=== PATIENT | male | born 1990 | race Caucasian/White ===

== ENCOUNTER 2024-03-05 09:49 | Emergency (ER) | payer SELFPAY ==
[~2024-03-05] VITALS: Ht 177.8 cm; Wt 93.9 kg
[~2024-03-05 09:49] MED LIST: ACET-9234 PO
[2024-03-05 10:00] VITALS: BP 119/78; PULSE 85; RESP 18; TEMP 97.9; O2SAT 97
[2024-03-05] MEDS: NACL 0.9% 1,000 ML IV ONE (10:26)
[2024-03-05] MEDS: ONDANSETRON 4 MG/2 ML VIAL IVP ONE (10:29)
[2024-03-05] MEDS: KETOROLAC 30 MG/ML VIAL IVP ONE (10:31)
[2024-03-05] MEDS ORDERED: ONDA8TAB87 PO (10:34)
[2024-03-05] MEDS ORDERED: IBUP-2213 PO (10:34)
[2024-03-05 11:08] VITALS: BP 110/68; PULSE 68; RESP 18; TEMP 36.61404; O2SAT 98
[2024-03-06] MEDS ORDERED: SUCR1TAB56 PO (04:42)
[2024-03-06] MEDS ORDERED: METO-485 PO (04:42)
[2024-03-06] MEDS ORDERED: FAMO-90 PO (04:42)
== END 2024-03-05 11:06 | disposition home or self-care (01) ==
LOC: MED 09:49
DX: R10.13 Epigastric pain (principal); R11.2 Nausea with vomiting, unspecified; Z79.899 Other long term (current) drug therapy
CPT/HCPCS: 96361; 96374; 96375; 99284; J1885; J2405; J7030

== ENCOUNTER 2024-03-06 00:21 | Emergency (ER) | payer SELFPAY ==
[~2024-03-06] VITALS: Ht 177.8 cm; Wt 93.9 kg
[~2024-03-06 00:21] MED LIST changes: +IBUP-2213 PO; +ONDA8TAB87 PO
[2024-03-06 00:26] VITALS: BP 155/99; PULSE 88; RESP 16; TEMP 96.9; O2SAT 98
[2024-03-06] MEDS: ONDANSETRON 4 MG/2 ML VIAL IVP ONE (01:23)
[2024-03-06] MEDS: MORPHINE SULFATE 4 MG/ML SYR IVP ONE (01:25)
[2024-03-06] MEDS: NACL 0.9% 1,000 ML IV ONE (01:28)
[2024-03-06 01:36] LABS: ANION GAP 13.7 (8-16); BASOPHILS % (AUTO) 0.3 % (0.0-2.0); CALCIUM 9.3 mg/dL (8.5-10.1); CARBON DIOXIDE 27.9 mmol/L (21-32); EOSINOPHILS % (AUTO) 0.3 % (0.0-4.0); HEMOGLOBIN 15.6 g/dL (12.0-18.0); LYMPHOCYTES # (AUTO) 1.4 K/uL (2.0-11.5); LYMPHOCYTES % (AUTO) 13.6 % (20.5-51.1); MEAN CORPUSCULAR HEMOGLOBIN 30 pg (27-31); MEAN CORPUSCULAR HGB CONC 35 g/dL (33-37); MEAN CORPUSCULAR VOLUME 87.5 fL (80-94); MONOCYTES # (AUTO) 0.8 K/uL (0.8-1.0); MONOCYTES % (AUTO) 8.3 % (1.7-9.3); NEUTROPHILS # (AUTO) 7.8 K/uL (1.8-7.7); NEUTROPHILS % (AUTO) 77.5 % (42.2-75.2); PLATELET COUNT (AUTO) 217 K/uL (140-450); POTASSIUM 3.6 mmol/L (3.5-5.1); RED BLOOD CELL COUNT(AUTO) 5.14 MIL/uL (4.20-6.10); RED CELL DISTRIBUTION WIDTH 13.3 % (11.6-13.7); WHITE BLOOD COUNT (AUTO) 10.1 K/uL (4.8-10.8)
[2024-03-06 01:40] LABS: ALBUMIN 4.3 g/dL (3.4-5.0); BILIRUBIN,DIRECT 0.5 mg/dL (0.0-0.3); TOTAL BILIRUBIN 1.4 mg/dL (0.0-1.0); TOTAL PROTEIN, SERUM 8.1 g/dL (6.4-8.2)
[2024-03-06 03:03] VITALS: BP 117/69; PULSE 73; RESP 15
[2024-03-06] MEDS: METOCLOPRAMIDE 10 MG/2 ML INJ VIAL IVP ONE (04:03)
[2024-03-06 04:07] VITALS: O2SAT 96
[2024-03-06] MEDS ORDERED: ONDANSETRON 4 MG/2 ML VIAL IVP ONE (04:40)
[2024-03-06] MEDS ORDERED: SUCR1TAB56 PO (04:42)
[2024-03-06] MEDS ORDERED: METO-485 PO (04:42)
[2024-03-06] MEDS ORDERED: FAMO-90 PO (04:42)
== END 2024-03-06 05:27 | disposition home or self-care (01) ==
LOC: MED 00:21
DX: K29.70 Gastritis, unspecified, without bleeding (principal); Z79.899 Other long term (current) drug therapy
CPT/HCPCS: 36415; 74176; 80048; 80076; 83690; 85025; 96361; 96374; 96375; 99285; J2270; J2405; J2765; J7030

== ENCOUNTER 2024-04-12 18:05 | Emergency (ER) | payer SELFPAY ==
[~2024-04-12] VITALS: Ht 177.8 cm; Wt 97.5 kg
[~2024-04-12 18:05] MED LIST changes: +FAMO-90 PO; +METO-485 PO; +SUCR1TAB56 PO
[2024-04-12 18:29] VITALS: BP 131/87; PULSE 80; RESP 16; TEMP 98.9; O2SAT 97
[2024-04-12 19:20] LABS: BASOPHILS % (AUTO) 0.3 % (0.0-2.0); EOSINOPHILS # (AUTO) 0.1 K/uL (0-0.4); EOSINOPHILS % (AUTO) 1.6 % (0.0-4.0); HEMATOCRIT 42.5 % (36-52); HEMOGLOBIN 14.3 g/dL (12.0-18.0); LYMPHOCYTES % (AUTO) 29.1 % (20.5-51.1); MEAN CORPUSCULAR HEMOGLOBIN 29 pg (27-31); MEAN CORPUSCULAR HGB CONC 34 g/dL (33-37); MEAN CORPUSCULAR VOLUME 87.3 fL (80-94); MONOCYTES # (AUTO) 0.7 K/uL (0.8-1.0); MONOCYTES % (AUTO) 9.8 % (1.7-9.3); NEUTROPHILS # (AUTO) 4.1 K/uL (1.8-7.7); NEUTROPHILS % (AUTO) 59.2 % (42.2-75.2); PLATELET COUNT (AUTO) 215 K/uL (140-450); RED BLOOD CELL COUNT(AUTO) 4.87 MIL/uL (4.20-6.10); RED CELL DISTRIBUTION WIDTH 13.4 % (11.6-13.7); WHITE BLOOD COUNT (AUTO) 6.9 K/uL (4.8-10.8)
[2024-04-12 19:22] LABS: APPEARANCE,URINE CLEAR (CLEAR); BILIRUBIN,URINE NEGATIVE (NEGATIVE); BLOOD, URINE NEGATIVE (NEGATIVE); COLOR,URINE YELLOW (YELLOW); LEUKOCYTE ESTERASE ,URINE NEGATIVE (NEGATIVE); NITRITE, URINE NEGATIVE (NEGATIVE); PROTEIN,URINE NEGATIVE (NEGATIVE); UGLUCOSE NEGATIVE (NEGATIVE)
[2024-04-12 19:30] VITALS: BP 110/66; PULSE 74; RESP 20; O2SAT 98
[2024-04-12 19:33] LABS: ALBUMIN 4.1 g/dL (3.4-5.0); ANION GAP 10.6 (8-16); CALCIUM 9.1 mg/dL (8.5-10.1); CARBON DIOXIDE 31.2 mmol/L (21-32); CREATININE 0.8 mg/dL (0.6-1.3); POTASSIUM 3.8 mmol/L (3.5-5.1); TOTAL BILIRUBIN 0.8 mg/dL (0.0-1.0); TOTAL PROTEIN, SERUM 7.5 g/dL (6.4-8.2)
[2024-04-12] MEDS: KETOROLAC 60 MG/2 ML VIAL IM ONE (19:37)
[2024-04-12] MEDS: ACETAMINOPHEN EXTRA STRENGTH 500 MG TAB PO ONE (20:20)
[2024-04-12] MEDS ORDERED: CLIN300C2 PO (20:25)
[2024-04-12] MEDS ORDERED: FAMO-90 PO (20:27)
[2024-04-12] MEDS ORDERED: IBUP-2213 PO (20:27)
== END 2024-04-12 20:40 | disposition home or self-care (01) ==
LOC: MED 18:05
DX: R10.12 Left upper quadrant pain (principal); R10.13 Epigastric pain; R11.2 Nausea with vomiting, unspecified; M54.9 Dorsalgia, unspecified; Z79.899 Other long term (current) drug therapy
CPT/HCPCS: 36415; 80053; 81003; 83690; 85025; 96372; 99283; J1885

== ENCOUNTER 2024-04-15 05:28 | Emergency (ER) | payer SELFPAY ==
[~2024-04-15] VITALS: Ht 177.8 cm; Wt 93.9 kg
[2024-04-15 05:45] VITALS: BP 114/75; PULSE 74; RESP 18; TEMP 98; O2SAT 98
[2024-04-15] MEDS: NACL 0.9% 1,000 ML IV ONE (06:51)
[2024-04-15 06:54] VITALS: O2SAT 98
[2024-04-15] MEDS: ONDANSETRON 4 MG/2 ML VIAL IVP ONE (06:56)
[2024-04-15] MEDS: FAMOTIDINE 20 MG/2 ML VIAL IVP ONE (06:56)
[2024-04-15] MEDS: MORPHINE SULFATE 4 MG/ML SYR IVP ONE (06:58)
[2024-04-15 07:11] LABS: BASOPHILS % (AUTO) 0.4 % (0.0-2.0); EOSINOPHILS % (AUTO) 0.4 % (0.0-4.0); HEMOGLOBIN 14.9 g/dL (12.0-18.0); LYMPHOCYTES # (AUTO) 1.6 K/uL (2.0-11.5); LYMPHOCYTES % (AUTO) 20.7 % (20.5-51.1); MEAN CORPUSCULAR HEMOGLOBIN 30 pg (27-31); MEAN CORPUSCULAR HGB CONC 34 g/dL (33-37); MEAN CORPUSCULAR VOLUME 87.2 fL (80-94); MONOCYTES # (AUTO) 0.6 K/uL (0.8-1.0); MONOCYTES % (AUTO) 7.9 % (1.7-9.3); NEUTROPHILS # (AUTO) 5.3 K/uL (1.8-7.7); NEUTROPHILS % (AUTO) 70.6 % (42.2-75.2); PLATELET COUNT (AUTO) 225 K/uL (140-450); RED BLOOD CELL COUNT(AUTO) 5.05 MIL/uL (4.20-6.10); RED CELL DISTRIBUTION WIDTH 13.5 % (11.6-13.7); WHITE BLOOD COUNT (AUTO) 7.5 K/uL (4.8-10.8)
[2024-04-15 07:13] VITALS: BP 113/68; PULSE 63; RESP 16; TEMP 98.1; O2SAT 99
[2024-04-15 07:20] LABS: ANION GAP 9.1 (8-16); CALCIUM 9.4 mg/dL (8.5-10.1); CARBON DIOXIDE 31.7 mmol/L (21-32); CREATININE 0.7 mg/dL (0.6-1.3); POTASSIUM 3.8 mmol/L (3.5-5.1)
[2024-04-15 07:24] LABS: ALBUMIN 4.2 g/dL (3.4-5.0); BILIRUBIN,DIRECT 0.3 mg/dL (0.0-0.3); TOTAL BILIRUBIN 1.3 mg/dL (0.0-1.0); TOTAL PROTEIN, SERUM 7.9 g/dL (6.4-8.2)
[2024-04-15 07:25] LABS: AMPHETAMINE, URINE NEGATIVE ng/ml (NEG <=1000); BARBITURATE, URINE NEGATIVE ng/ml (NEG <=200); BENZODIAZEPINE, URINE NEGATIVE ng/mL (NEG <=200); CANNABINOID, URINE POSITIVE ng/mL (NEG <=50); COCAINE, URINE NEGATIVE ng/mL (NEG <=300); OPIATE, URINE NEGATIVE ng/mL (NEG <=2000); PHENCYCLIDINE SCREEN,URINE NEGATIVE ng/mL (NEG <=25)
[2024-04-15] MEDS ORDERED: ONDA-188 SL (08:04)
[2024-04-15] MEDS ORDERED: FAMO-90 PO (08:04)
[2024-04-16] MEDS ORDERED: ATA25 PO (13:24)
== END 2024-04-15 09:00 | disposition home or self-care (01) ==
LOC: MED 05:28
DX: K29.70 Gastritis, unspecified, without bleeding (principal); R11.2 Nausea with vomiting, unspecified; E11.9 Type 2 diabetes mellitus without complications; Z79.84 Long term (current) use of oral hypoglycemic drugs; Z79.899 Other long term (current) drug therapy
CPT/HCPCS: 36415; 76705; 80048; 80076; 80305; 83690; 85025; 96361; 96374; 96375; 99285; J2270; J2405; J3490; J7030; Q0092

== ENCOUNTER 2024-04-16 12:50 | Emergency (ER) | payer SELFPAY ==
[~2024-04-16] VITALS: Ht 177.8 cm; Wt 93.9 kg
[2024-04-16 12:50] VITALS: BP 134/94; PULSE 92; RESP 18; TEMP 98.5; O2SAT 98
[~2024-04-16 12:50] MED LIST changes: +ONDA-188 SL
[2024-04-16] MEDS ORDERED: ATA25 PO (13:24)
[2024-04-16] MEDS: HYDROXYZINE HYDROCHLORIDE 25 MG TAB PO ONE (13:39)
== END 2024-04-16 13:43 | disposition home or self-care (01) ==
LOC: MED 12:50
DX: R10.9 Unspecified abdominal pain (principal); T39.1X5A Adverse effect of 4-Aminophenol derivatives, initial encounter; E11.9 Type 2 diabetes mellitus without complications; F12.90 Cannabis use, unspecified, uncomplicated; Z79.84 Long term (current) use of oral hypoglycemic drugs; Z79.899 Other long term (current) drug therapy; Y92.89 Other specified places as the place of occurrence of the external cause
CPT/HCPCS: 82948; 99283

== ENCOUNTER 2024-04-27 17:40 | Emergency (ER) | payer SELFPAY ==
[~2024-04-27] VITALS: Ht 177.8 cm; Wt 93.0 kg
[~2024-04-27 17:40] MED LIST changes: -ACET-9234 PO; +ATA25 PO; -IBUP-2213 PO; -METO-485 PO; -ONDA8TAB87 PO
[2024-04-27 18:27] VITALS: BP 128/82; PULSE 75; RESP 16; TEMP 97.8; O2SAT 97
== END 2024-04-27 20:00 | disposition home or self-care (01) ==
LOC: MED 17:40
DX: E11.65 Type 2 diabetes mellitus with hyperglycemia (principal); F41.9 Anxiety disorder, unspecified; Z79.899 Other long term (current) drug therapy
CPT/HCPCS: 82948; 93005; 99283

== ENCOUNTER 2024-05-16 01:47 | Emergency (ER) | payer SELFPAY ==
[~2024-05-16] VITALS: Ht 177.8 cm; Wt 93.0 kg
[2024-05-16 01:50] VITALS: BP 125/75; PULSE 90; RESP 16; TEMP 97.8; O2SAT 99
[2024-05-16 02:30] LABS: AMPHETAMINE, URINE NEGATIVE ng/ml (NEG <=1000); BARBITURATE, URINE NEGATIVE ng/ml (NEG <=200); BENZODIAZEPINE, URINE NEGATIVE ng/mL (NEG <=200); CANNABINOID, URINE NEGATIVE ng/mL (NEG <=50); COCAINE, URINE NEGATIVE ng/mL (NEG <=300); OPIATE, URINE NEGATIVE ng/mL (NEG <=2000); PHENCYCLIDINE SCREEN,URINE NEGATIVE ng/mL (NEG <=25)
[2024-05-16] MEDS: LORazepam 2 MG/ML VIAL IM ONE (03:01)
[2024-05-16] MEDS ORDERED: ZOLP5TAB1 PO (03:38)
[2024-05-16 03:45] VITALS: BP 118/70; PULSE 68; RESP 16; TEMP 97.8; O2SAT 99
== END 2024-05-16 03:45 | disposition home or self-care (01) ==
LOC: MED 01:47
DX: F41.9 Anxiety disorder, unspecified (principal); Z79.899 Other long term (current) drug therapy
CPT/HCPCS: 80305; 96372; 99283; J2060